=== PATIENT | female | born 1945 | race Caucasian/White ===

== ENCOUNTER 2024-08-22 07:46 | Outpatient (OUT) | payer MEDICARE, SELFPAY ==
--- OUTSIDE RECORDS SUMMARY | 2024-08-21 09:30 | XMS_ITS | Encounter Summary ---
Author Organization [facility] Address [address] [place] [address] Care Team Providers Care Combination Machine Tender Name Role Phone Nitesh Ware MD Primary Care Provider [phone] Rodrigo Baugh MD Unavailable [phone] Flip Alvarado DPM Unavailable [phone] Reason for Visit * Consultation (Routine) - Pending Review Specialty Diagnoses / Procedures Referred By Fina arambula Referred To Contact Physical Therapy Diagnoses Gait abnormality Weakness Procedures WI MANUAL THERAPY TQS 1/> REGIONS EACH 15 MINUTES WI THER PX 1/> AREAS EACH 15 MIN NEUROMUSC REEDUCA WI THERAPEUTIC PX 1/> AREAS EACH 15 MIN EXERCISES PHYS/OCC THERAPY Rodrigo Baugh MD [address] [facility] [address] [place] [address] Phone: tel: fax: Clif Gonzalez, PT [address] [address] Phone: tel: fax: Referral ID Status Reason Start Date Expiration Date Visits Requested Visits Authorized [id number] Pending Review Specialty Services Required 07/30/2024 11/27/2024 3 3 Encounter Details Date Type Department Care Team (Late st Contact Info) Description 08/21/2024 9:30 AM EDT Treatment [facility] [address] [facility] [address] [place] [address] Clif Gonzalez, PT [address] [address] Gait abnormality (Primary Dx); Weakness Social History Tobacco Use Types Packs/Day Years Used Date Smoking Tobacco: Never Smokeless Tobacco: Never Alcohol Use Standard Drinks/Week Comments Not Currently 0 (1 standard drink = 0.6 oz pure alcohol) Caffeine intake : 1-2 cups per day Humiliation, Afraid, Rape, and Kick questionnair e Answer Date Recorded Within the last year, have y ou been afraid of your partner or ex-partner? No 07/11/2022 Within the last year, have y ou been humiliated or emotionally abused in other ways by your partner or ex-partner? No 07/11/2022 Physically Abused Not on file 07/11/2022 Within the last year, have y ou been raped or forced to have any kind of sexual activity by your partner or ex-partner? No 07/11/2022 Social Connection and Isolat ion Panel [NHANES] Answer Date Recorded In a typical week, how many times do you talk on the phone with family, friends, or neighbors? Three times a week 07/11/2022 How often do you get togethe r with friends or relatives? Once a week 07/11/2022 How often do you attend chur ch or advent services? More than 4 times per year 07/11/2022 Do you belong to any clubs o r organizations such as oriental orthodox groups, unions, fraternal or athletic groups, or school groups? No 07/11/2022 Attends Club or Organization Meetings Not on shay e 07/11/2022 Are you , , di vorced, , never , or living with a partner? 07/11/2022 AUDIT-C Answer Date Recorded Q1: How often do you have a drink containing alcohol? Never 07/11/2022 Q2: How many drinks containi ng alcohol do you have on a typical day when you are drinking? Patient does not drink Q3: How often do you have si x or more drinks on one occasion? Never 07/11/2022 Overall Financial Resource Strain (CARDIA) Answe r Date Recorded How hard is it for you to pa y for the very basics like food, housing, medical care, and heating? Not hard at all 07/11/2022 PHQ-2 Answer Date Recorded Patient Health Questionnaire-2 Score 0 06/18/2024 [facility] - Occupational Stress Questionnaire Answer Date Recorded Do you feel stress - tense, restless, nervous, or anxious, or unable to sleep at night because your mind is troubled all the time - these days? Only a little 07/11/2022 Exercise Vital Sign Answer Date Recorde d On average, how many days pe r week do you engage in moderate to strenuous exercise (like a brisk walk)? 1 day 07/11/2022 On average, how many minutes do you engage in exercise at this level? 20 min 07/11/2022 Hunger Vital Sign Answer Date Recorded Within the past 12 months, y ou worried that your food would run out before you got the money to buy more. Never true 07/12/19 23 Within the past 12 months, t he food you bought just didn't last and you didn't have money to get more. Never true 07/11/2022 PRAPARE - Transportation Answer Date Re corded In the past 12 months, has l ack of transportation kept you from medical appointments or from getting medications? No 07/2022 In the past 12 months, has l ack of transportation kept you from meetings, work, or from getting things needed for daily living? No 07/11/2022 Housing Stability Vital Sign Answer Fermin e Recorded In the last 12 months, was t here a time when you were not able to pay the mortgage or rent on time? No 07/11/2022 Number of Places Lived in the Last Year Not on f ile 07/11/2022 In the last 12 months, was t here a time when you did not have a steady place to sleep or slept in a senior living (including now)? No 07/11/2022 Education Answer Date Recorded What is the highest level of school you have completed or the highest degree you have received? High school graduate 07/05/2022 Comments No Sex and Gender Information Value Date Recorded Sex Assigned at Not on file Legal Sex Female 6:34 PM EDT Gender Identity Not on file Sexual Orientation Not on file documented as of this encounter Progress Notes * Clif Gonzalez, PT - 08/21/2024 9:30 AM EDT Images from the original note were not included. Physical Therapy Treatment Visit Patient Name: Indiana Duran Today's Date: 08/21/24 Encounter Diagnoses Name Primary? Gait abnormality Yes Weakness Visit number: 14 Timed Code Treatment: 40 minutes Total Treatment Time: 57 minutes Time In: 09:33 AM Time Out: 10:30 AM History: Pt. Presents to PT with c/c of poor balance and LE weakness. Pt. Was Dx diabetic polyneuropathy. Denies recent falls. Pt. Has left leg pain while sleeping at night and pain while wake her upat night. Pt. Has difficulty walking due to LE weakness. Precautions: universal Subjective: Pt reports no issue with past Rx, feels her balance has improved. Pain: denies Objective: PT Evaluation (06/11/24) Lumbar ROM: WFL LE ROM: WFL in all planes Flexibility: WFL Strength: core 4-/5, R LE 4-/5, Left LE 4-/5 Gait: limping gait pattern, decreased stride length, hip pain for first several steps TU seconds Treatment: Manual Therapy: Passive ROM, Joint mobilization, Soft Tissue Mobilization, Myofascial Release, Muscle Energy Technique, Neural Mobilization, Myofascial Cupping, Dry Needling, IASTM, and Scar mobilization Therapeutic Exercise: (15 minutes unsupervised/ 25 min total) Guided pt through ther and flex exercises per grid; to improve LE functional strength and tolerance. Nustep ( 0 minutes ) set to hills lev 4 seat to 15 to improve cardiovascular Therapeutic Activity: ( 15 minutes supervised) Exercises to improve dynamic activities, functional tasks, functional mobility to return to prior activity level Gait Training: Neuromuscular re-education: (10 minutes supervised ) static and dynamic balancing activity using various surfaces, tandem, single leg all LE proprioception, prevent falls and improve overall balance Modalities: Heat, Ice, Electrical Stimulation, Ultrasound, Cervical Mechanical Traction, Lumbar Mechanical Traction, Iontophoresis, and Fluidotherapy Assessment: MMT: Right LE 4/5 MMT: Left LE 4/5 TU.82, 9.52, 9.03 (average 9.13) Pt has participated in 14 PT session with start of POC on 06/11/24 for LE weakness and balance, occasional UE support. Reports mild muscle soreness post session. Continued with static, dynamic balancing, LE strengthening activity with pt tolerating well. Pt to try doing HEP on her own, will continue once a week. Recommend to continue PT treatment to improve her functional mobility. Continues to improve functional mobility. Outcome Measure: IE , (07/10/24) 48 Short Term Goal: To be met in 2 weeks Goal 1: Pt to be instructed in home exercise program. Cushion Installer Goals: To be met in 10 weeks Goal 1: Pt to report independence and compliance with home program. MET Goal 2: Pt. Will demonstrate 5/5 right LE strength grossly in all planes to help improve her functional mobility. Progressing Goal 3: Pt. Will demonstrate 5/5 left LE strength grossly in all planes to help improve her functional mobility. Progressing Goal 4: Pt. Will demonstrate 10 TUG time or less to help improve her functional mobility and balance. MET Goal 5: Pt. Will demonstrate good dynamic balance to help improve her functional mobility. Progressing Pt will benefit from skilled PT for 1-3x/week from 06/11/24 to 08/20/24 to address the above impairments. Will transfer PT care to Lanie Sykes, PT, CMPT,DPT I hereby deem this POC medically necessary. Please sign below. Date: documented in this encounter Plan of Treatment Upcoming Encounters Date Type Department Care Team (Late st Contact Info) Description 09/25/2024 9:00 AM EDT Office Visit [facility] 112 [facility] 120 [place] [address] Flip Alvarado DPM 3006 [facility] 5 [place] [address] 10/02/2024 11:00 AM EDT Office Visit [facility] [address] [place] [address] Rodrigo Baugh MD [address] [address] 12/10/2024 9:00 AM EST Office Visit [facility] 100 112 [facility] 100 [place] [address] Nitesh Ware MD 112 [facility] 100 [place] [address] documented as of this encounter Visit Diagnoses Diagnosis Gait abnormality- Primary Abnormality of gait Weakness Other malaise and fatigue documented in this encounter Additional Health Concerns Assessment Noted Time PHQ-9 Depression Total Score: 1 06/03/19 25 8:00 AM EDT documented as of this encounter Care Teams Combination Machine Tender Relationship Specialty Start Date End Date Nitesh Ware MD 112 [facility] 100 [place] [address] PCP - General Family Medicine 05/01/24 Rodrigo Baugh MD [address] [place] [address] Referring Physician Neurology 06/02/24 Flip Alvarado DPM 112 [facility] 120 [place] [address] Referring Physician Podiatry 06/02/24 documented as of this encounter
--- OUTSIDE RECORDS SUMMARY | 2024-08-22 07:53 | XMS_ITS | Encounter Summary ---
Author Organization [facility] Address [address] [place] [address] Care Team Providers Care Dowel Sticker Operator Name Role Phone Nitesh Ware MD Primary Care Provider Rodrigo Baugh MD Unavailable Flip Alvarado DPM Unavailable [phone] Encounter Details Date Type Department Care Team (Late st Contact Info) Description 07/08/2024 Orders Only [facility] [address] [place] [address] Nitesh Ware MD [address] [place] [address] Social History Tobacco Use Types Packs/Day Years [...] 07/11/2022 How often do you attend chur or mormonism services? More than 4 times per year 07/11/2022 Do you belong to any clubs o r organizations such as mu-ism groups, unions, fraternal or athletic groups, or [...] 06/18/2024 [facility] - Occupational Stress Questionnaire Answer Date Recorded [...] place to sleep or slept in a custodial (including now)? No 07/11/2022 Education Answer Date [...] on file documented as of this encounter Plan of Treatment Upcoming Encounters Date Type Department Care Team (Late st Contact Info) Description 09/25/2024 9:00 AM EDT Office Visit [facility] [address] [facility] 120 [place] [address] Flip Alvarado, DPM 3006 [facility] [place] [address] 10/02/2024 11:00 AM EDT Office Visit [facility] [address] [facility] [address] [place] [address] Rodrigo Baugh MD 9923 [facility] [address] [place] [address] 12/10/2024 9:00 AM EST Office Visit [facility] [address] [facility] 100 [place] [address] Nitesh Ware MD [address] [place] [address] documented as of this encounter Visit Diagnoses Not on filedocumented in this encounter Additional Health Concerns Assessment Noted Time PHQ-9 Depression Total Score: 1 06/03/19 25 8:00 AM EDT documented as of this encounter Care Teams Dowel Sticker Operator Relationship Specialty Start Date End Date Nitesh Ware MD 112 [facility] 100 [place] [address] PCP - General Family Medicine 05/01/24 Rodrigo Baugh MD [address] [place] [address] Referring Physician Neurology 06/02/24 Flip Alvarado DPM 112 [facility] [address] [place] [address] Referring Physician Podiatry 06/02/24 documented as of this encounter
--- OUTSIDE RECORDS SUMMARY | 2024-08-22 07:53 | XMS_ITS | Encounter Summary ---
Author Organization [facility] Address [address] [place] [address] Care Team Providers Care Sales And Customer Relations Rep Name Role Phone Nitesh Ware MD Unavailable [phone] Marleen Lovett LPN Unavailable Nitesh Ware MD Primary Care Provider [phone] Rodrigo Baugh MD Unavailable [phone] Flip Alvarado DPM Unavailable Encounter Details Date Type Department Care Team ([facility] st Contact Info) Description 11/23/2022 Abstract [facility] 112 [facility] 120 [place] [address] Flip Alvarado DPM 3006 [facility] 5 [place] [address] Social History Tobacco Use Types Packs/Day Years Used Date Smoking Tobacco: Never Smokeless Tobacco: Never Alcohol Use Standard Drinks/Week Comments Never 0 (1 standard drink = 0.6 oz pur e alcohol) caffeine 1-2 cups per day Humiliation, Afraid, Rape, [...] week 07/11/2022 How often do you attend [facility] or faith services? More than 4 times per year 07/11/2022 Do you belong to any clubs o r organizations such as sikhism groups, unions, [employer] or athletic groups, or school groups? No [...] Date Recorded Patient Health Questionnaire-2 Score 0 11/27/2022 [facility] Questionnaire Answer Date Recorded [...] place to sleep or slept in a group home (including now)? No 07/11/2022 Education Answer Date [...] EDT Office Visit [facility] 112 [facility] 120 [place] [address] Flip Alvarado DPM 3009 [facility] [address] [place] [address] 10/02/2024 11:00 AM EDT Office Visit [facility] [address] [facility] [address] [place] [address] Rodrigo Baugh MD [address] [facility] [address] [address] 12/10/2024 9:00 AM EST Office Visit [facility] [address] [facility] [address] [place] [address] Nitesh Ware MD [address] [place] [address] documented as of this encounter Visit Diagnoses Not on filedocumented in this encounter Care Teams Sales And Customer Relations Rep Relationship Specialty Start Date End Date Nitesh Ware MD [address] [facility] [address] [place] [address] (Fax) PCP - [employer] 02/05/17 04/11/24 Nitesh Ware MD [address] [facility] 100 [place] [address] PCP - General Family Medicine 05/01/24 Marleen Lovett LPN [address] [place] [address] Licensed Practical Nurse Family Medicine 03/08/23 Rodrigo Baugh MD [address] [place] [address] Referring Physician Neurology 06/02/24 Flip Alvarado DPM [address] [facility] [address] [place] [address] Referring Physician Podiatry 06/02/24 documented as of this encounter
--- OUTSIDE RECORDS SUMMARY | 2024-08-22 07:53 | XMS_ITS | Encounter Summary ---
Author Organization [facility] Address [address] [place] [address] Care Team Providers Care Stitcher Standard Machine Name Role Phone Nitesh Ware MD Primary Care Provider Rodrigo Baugh MD Unavailable Flip Alvarado DPM Unavailable Reason for Visit * Reason Comments Med Refill Encounter Details Date Type Department Care Team (Late st Contact Info) Description 06/15/2024 Refill [facility] [address] [place] [address] Nitesh Ware MD 112 [facility] [address] [place] [address] Benign essential hypertension Social History Tobacco Use Types Packs/Day Years [...] How often do you attend chur or faith services? More than 4 times per year 07/11/2022 Do you belong to any clubs o r organizations such as moravian groups, unions, fraternal or athletic groups, or [...] Recorded Patient Health Questionnaire-2 Score 0 06/18/2024 [facility] Questionnaire Answer Date [...] place to sleep or slept in a mcc (including now)? No 07/11/2022 Education Answer Date [...] on file documented as of this encounter Functional Status * Over the past 2 weeks, how often have you been bothered by any of the following problems? Question Answer Date of Assessment Author Little interest or pleasure in doing things Not at all 06/18/2024 9:19 AM EDT Lola Romero MA Feeling down, depressed, or hopeless Not at all 06/18/2024 9:19 AM EDT Lola Romero MA Patient Health Questionnaire -2 Score 0 06/18/2024 9:19 AM EDT Lola Romero MA documented as of this encounter Plan of Treatment Upcoming Encounters Date Type Department Care Team (Late st Contact Info) Description 09/25/2024 9:00 AM EDT Office Visit [facility] 112 [facility] 120 [place] [address] Flip Alvarado DPM 9433 [facility] 5 [place] [address] 10/02/2024 11:00 AM EDT Office Visit [facility] [address] [place] [address] Rodrigo Baugh MD 5372 [facility] [address] [address] 12/10/2024 9:00 AM EST Office Visit [facility] 100 [address] [facility] 100 [place] [address] Nitesh Ware MD 112 [facility] 100 [place] [address] (Fax) documented as of this encounter Visit Diagnoses Diagnosis Benign essential hypertension Essential hypertension, benign documented in this encounter Additional Health Concerns Assessment Noted Time PHQ-9 Depression Total Score: 1 06/03/19 8:00 AM EDT documented as of this encounter Care Teams Stitcher Standard Machine Relationship Specialty Start Date End Date Nitesh Ware MD 112 [facility] 100 [place] [address] PCP - General Family Medicine 05/01/24 Rodrigo Baugh MD [address] [place] [address] Referring Physician Neurology 06/02/24 Flip Alvarado DPM 112 [facility] 120 [place] [address] Referring Physician Podiatry 06/02/24 documented as of this encounter
--- OUTSIDE RECORDS SUMMARY | 2024-08-22 07:54 | XMS_ITS | Encounter Summary ---
Author Organization [facility] Address [address] [place] [address] Care Team Providers Care Inoculator Name Role Phone Nitesh Ware MD Unavailable [phone] Nitesh Ware MD Primary Care Provider [phone] Rodrigo Baugh MD Unavailable [phone] Flip Alvarado DPM Unavailable [phone] Encounter Details Date Type Department Care Team (Late st Contact Info) Description 04/08/2024 Orders Only [facility] [address] [place] [address] Lola Romero MA Neuropathy; Abnormal EMG Social History Tobacco Use Types Packs/Day Years [...] week 07/11/2022 How often do you attend [facility] or bahai services? More than 4 times per year 07/11/2022 Do you belong to any clubs o r organizations such as zoroastrianism groups, unions, fraternal or athletic groups, or [...] Date Recorded Patient Health Questionnaire-2 Score 0 05/30/2023 [facility] - Occupational Stress Questionnaire Answer [...] EDT Office Visit [facility] 112 [facility] 120 [place] [address] Flip Alvarado DPM 3006 [facility] 5 [place] [address] 10/02/2024 11:00 AM EDT Office Visit [facility] [address] [facility] [address] [place] [address] Rodrigo Baugh MD 7310 [facility] [address] [id number] 12/10/2024 9:00 AM EST Office Visit [facility] 100 112 [facility] 100 [place] [address] Nitesh Ware MD 112 [facility] [address] [place], [place] [address] (Fax) documented as of this encounter Visit Diagnoses Diagnosis Neuropathy Mononeuritis of unspecified site Abnormal EMG documented in this encounter Additional Health Concerns Assessment Noted Time PHQ-9 Depression Total Score: 1 05/30/19 24 10:00 AM EDT documented as of this encounter Care Teams Inoculator Relationship Specialty Start Date End Date Nitesh Ware MD 112 [facility] [address] [place] [address] (Fax) PCP - [employer] 02/05/17 04/11/24 Nitesh Ware MD 112 [facility] 100 [place] [address] PCP - General Family Medicine 05/01/24 Rodrigo Buagh MD [address] [place] [address] Referring Physician Neurology 06/02/24 Flip Alvarado DPM 112 [facility] [address] [place] [address] Referring Physician Podiatry 06/02/24 documented as of this encounter
--- OUTSIDE RECORDS SUMMARY | 2024-08-22 07:54 | XMS_ITS | Encounter Summary ---
Author Organization [facility] Address [address] [place] [address] Care Team Providers Care Sales Data Analyst Name Role Phone Nitesh Ware MD Unavailable [phone] Nitesh Ware MD Primary Care Provider [phone] Rodrigo Baugh MD Unavailable [phone] Flip Alvarado DPM Unavailable [phone] Encounter Details Date Type Department Care Team (Late st Contact Info) Description 09/18/2023 Orders Only [facility] [address] [place] [address] Edi Christy, OD [address] [place] [address] Social History Tobacco Use Types Packs/Day Years [...] How often do you attend chur or congregation services? More than 4 times per year 07/11/2022 Do you belong to any clubs o r organizations such as anabaptist groups, unions, fraternal or athletic groups, or [...] Recorded Patient Health Questionnaire-2 Score 0 05/30/2023 [facility] - Occupational Stress Questionnaire Answer Date [...] place to sleep or slept in a penitentiary (including now)? No 07/11/2022 Education Answer Date [...] EDT Office Visit [facility] 112 [facility] 120 [place] [address] Flip Alvarado DPM 3006 [facility] 5 [place] [address] 10/02/2024 11:00 AM EDT Office Visit [facility] [address] [facility] [address] [place] [address] Rodrigo Baugh MD 7748 [facility] [address], [place] [address] 12/10/2024 9:00 AM EST Office Visit [facility] 100 112 [facility] 100 [place] [address] Nitesh Ware MD 112 [facility] [address] [place] [address] documented as of this encounter Procedures Procedure Name Priority Date/Time Associated Diagnosis Comments DIABETIC RETINOPATHY SCREENING - OU - BOTH EYES Routine 09/17/2023 9:15 AM EDT documented in this encounter Results * Diabetic Retinopathy Screening - OU - Both Eyes (09/17/2023 9:15 AM EDT) Anatomical Region Laterality Modality Head Other Edi Christy OD OPHTH PHOTOGRAPHY Final Result documented in this encounter Visit Diagnoses Not on filedocumented in this encounter Additional Health Concerns Assessment Noted Time PHQ-9 Depression Total Score: 1 05/30/19 24 10:00 AM EDT documented as of this encounter Care Teams Sales Data Analyst Relationship Specialty Start Date End Date Nitesh Ware MD 112 [facility] [address] [place] [address] PCP - [employer] 02/05/17 04/11/24 Nitesh Ware MD 112 [facility] 100 [place] [address] (Fax) PCP - General Family Medicine 05/01/24 Rodrigo Baugh MD [address] [place] [address] Referring Physician Neurology 06/02/24 Flip Alvarado DPM 112 [facility] [address] [place] [address] Referring Physician Podiatry 06/02/24 documented as of this encounter
--- OUTSIDE RECORDS SUMMARY | 2024-08-22 07:54 | XMS_ITS | Encounter Summary ---
Author Organization [facility] Address [address] [place] [address] Care Team Providers Care Gripper Installer Name Role Phone Nitesh Ware MD Unavailable [phone] Marleen Lovett LPN Unavailable Nitesh Ware MD Primary Care Provider Rodrigo Baugh MD Unavailable [phone] Flip Alvarado DPHannah Unavailable [phone] Encounter Details Date Type Department Care Team (Late st Contact Info) Description 09/25/2022 Abstract [facility] [address] [place] [address] Nitesh Ware MD 112 [facility] 100 [place] [address] Social History Tobacco Use Types Packs/Day Years [...] week 07/11/2022 How often do you attend [facility] or yarsani services? More than 4 times per year 07/11/2022 Do you belong to any clubs o r organizations such as nondenominational groups, unions, fraternal or athletic groups, or [...] and heating? Not hard at all 07/11/2022 [facility] - Occupational Stress [...] EDT Office Visit [facility] 112 [facility] 120 [place] [address] Flip Alvarado DPM 3006 [facility] 5 [place] [address] 10/02/2024 11:00 AM EDT Office Visit [facility] NEUR [address] [facility] 310 [place] [address] Rodrigo Baugh MD [address] [facility] [address], [place] [address] 12/10/2024 9:00 AM EST Office Visit [facility] FM 100 112 [facility] 100 [place] [address] Nitesh Ware MD [address] [place] [address] documented as of this encounter Visit Diagnoses Not on filedocumented in this encounter Care Teams Gripper Installer Relationship Specialty Start Date End Date Nitesh Ware MD [address] [place] [address] (Fax) PCP - [employer] 02/05/17 04/11/24 Nitesh Ware MD [address] [place] [address] PCP - General Family Medicine 05/01/24 Marleen Lovett LPN [address] [place] [address] Licensed Practical Nurse Family Medicine 03/08/23 Rodrigo Baugh MD [address] [place] [address] Referring Physician Neurology 06/02/24 Flip Alvarado DPM [address] [place] [address] Referring Physician Podiatry 06/02/24 documented as of this encounter
--- OUTSIDE RECORDS SUMMARY | 2024-08-22 07:54 | XMS_ITS | Encounter Summary ---
Author Organization [facility] Address [address] [place] [address] Care Team Providers Care Mixed Livestock Farmer Name Role Phone Nitesh Ware MD Primary Care Provider Rodrigo Baugh MD Unavailable [phone] Flip Alvarado DPM Unavailable [phone] Encounter Details Date Type Department Care Team (Latest Contact Info) Description 08/21/2024 Travel Social History Tobacco Use Types Packs/Day Years [...] you attend [facility] or worship services? More than 4 times per year 07/11/2022 Do you belong to any clubs o r organizations such as faith groups, unions, fraternal or athletic groups, or [...] Recorded Patient Health Questionnaire-2 Score 0 06/18/2024 [facility] - Occupational Stress Questionnaire Answer Date [...] place to sleep or slept in a longterm (including now)? No 07/11/2022 Education Answer Date [...] EDT Office Visit [facility] 112 [facility] 120 [place] [address] Flip Alvarado DPM 3006 [facility] 5 [place] [address] 10/02/2024 11:00 AM EDT Office Visit [facility] NE[facility] [address] [facility] 310 [place] [address] Rodrigo Baugh MD 7960 [facility] [address] [id number] 12/10/2024 9:00 AM EST Office Visit [facility] 100 112 [facility] 100 [place] [address] Nitesh Ware MD 112 [facility] [address] [place] [address] documented as of this encounter Visit Diagnoses Not on filedocumented in this encounter Additional Health Concerns Assessment Noted Time PHQ-9 Depression Total Score: 1 06/03/19 25 8:00 AM EDT documented as of this encounter Care Teams Mixed Livestock Farmer Relationship Specialty Start Date End Date Nitesh Ware MD [address] [place] [address] PCP - General Family Medicine 05/01/24 Rodrigo Baugh MD [address] [place] [address] Referring Physician Neurology 06/02/24 Flip Alvarado DPM [address] [place] [address] Referring Physician Podiatry 06/02/24 documented as of this encounter
--- OUTSIDE RECORDS SUMMARY | 2024-08-22 07:54 | XMS_ITS | Encounter Summary ---
Author Organization [facility] Address [address] [place] [address] Care Team Providers Care Thaw Shed Heater Tender Name Role Phone Nitesh Ware MD Primary Care Provider Rodrigo Baugh MD Unavailable [phone] Flip Alvarado DPM Unavailable Encounter Details Date Type Department Care Team (Late st Contact Info) Description 08/12/2024 Orders Only [facility] [address] [place] [address] Heather, May, Diabetic polyneuropathy associated with type 2 diabetes mellitus (HCC); Type 2 diabetes mellitus with stage 3a chronic kidney disease, without long-term current use of insulin (HCC) Social History Tobacco Use Types Packs/Day Years [...] How often do you attend chur or amish services? More than 4 times per year 07/11/2022 Do you belong to any clubs o r organizations such as congregational groups, unions, fraternal or athletic groups, or [...] Recorded Patient Health Questionnaire-2 Score 0 06/18/2024 [facility] - Occupational Stress Questionnaire Answer Date [...] to sleep or slept in a senior care (including now)? No 07/11/2022 Education Answer Date [...] as of this encounter Progress Notes * Lola Romero MA - 08/12/2024 9:42 AM EDT Pt got a letter from insurance stating the machine she just got is not covered anymore. Spoke with Donny at [facility] and he guided me to sending a new machine. documented in this encounter Plan of Treatment Upcoming Encounters Date Type Department Care Team (Late st Contact Info) Description 09/25/2024 9:00 AM EDT Office Visit [facility] 112 [facility] [address] [place] [address] Flip Alvarado DPM 3006 [facility] [address] 5 [place] [address] 10/02/2024 11:00 AM EDT Office Visit [facility] [address] [place] [address] Rodrigo Baugh MD [address] [facility] [address] [address] 12/10/2024 9:00 AM EST Office Visit [facility] 100 112 [facility] 100 [place] [address] Nitesh Ware MD 112 [facility] 100 [place] [address] documented as of this encounter Visit Diagnoses Diagnosis Diabetic polyneuropathy associated with type 2 diabetes mellitus (HCC) Type 2 diabetes mellitus with stage 3a chronic kidney disease, without long-term current use of insulin (HCC) documented in this encounter Additional Health Concerns Assessment Noted Time PHQ-9 Depression Total Score: 1 06/03/19 8:00 AM EDT documented as of this encounter Care Teams Thaw Shed Heater Tender Relationship Specialty Start Date End Date Nitesh Ware MD 112 [facility] 100 [place] [address] PCP - General Family Medicine 05/01/24 Rodrigo Baugh MD [address] [facility] 310 [place] [address] Referring Physician Neurology 06/02/24 Flip Alvarado DPM 112 [facility] 120 [place] [address] Referring Physician Podiatry 06/02/24 documented as of this encounter
--- OUTSIDE RECORDS SUMMARY | 2024-08-22 07:54 | XMS_ITS | Clinical Summary ---
Author Organization [facility] Address [address] [facility], [address] [place] [address] Care Team Providers Care Second Facing Baster Name Role Phone Nitesh Ware MD Primary Care Provider Allergies No known active allergies Medications amLODIPine (NORVASC) 10 MG tablet Take 10 mg by mouth daily 08/19/2018 Active metFORMIN (GLUCOPHAGE) 1000 MG tablet Take 1,000 mg by mouth 2 times daily (with meals) Active losartan (COZAAR) 100 MG tabletIndication s:losartan/hctz 100-25 Take 100 mg by mouth daily Indications : losartan/hc tz 100-25 08/19/2018 Active aspirin (ASPIRIN 81) 81 MG EC tablet Take 81 mg by mouth daily 01/23/2013 Active vitamin D (CHOLECALCIFEROL ) 250 MCG (24009 UT) CAPS capsule Take 1,000 Units by mouth daily 01/23/2013 Active calcium carbonate (OSCAL) 500 MG TABS tablet Take 500 mg by mouth daily Active Multiple Vitamins-Mineral s (MULTIVITAMIN ADULTS 50+) TABS Take by mouth Active Active Problems Problem Noted Date Diagnosed Date Gait abnormality 08/01/2019 Type 2 diabetes mellitus wit h hyperglycemia, with long-term current use of insulin 08/01/2019 HTN (hypertension) 08/01/2019 Cervical disc disorder with myelopathy of mid-cervical region 07/31/2019 Disease of spinal cord, unspecified 06/25/2019 Other spondylosis with myelopathy, cervical marlene on 06/18/2019 Pain in right knee 12/19/2017 Pain of right upper extremity 08/28/2016 Malignant neoplasm of female breast 01/27/2013 Family History Medical History Relation Name Comments Hypertension Father Coronary Art Dis Mother Diabetes Mother Heart Disease Mother Relation Name Status Comments Father Mother Social History Tobacco Use Types Packs/Day Years Used Date Smoking Tobacco: Never Smokeless Tobacco: Never Alcohol Use Standard Drinks/Week Comments Not Currently 0 (1 standard drink = 0.6 oz pur e alcohol) Comments No Sex and Gender Information Value Date Recorded Sex Assigned at Not on file Legal Sex Female 3:29 PM EST Gender Identity Not on file Sexual Orientation Not on file Occupation Industry Job Start Date Job End Date Not on file Not on file Not on file Not on file Last Filed Vital Signs Vital Sign Reading Time Taken Comments Blood Pressure 131/60 08/01/2019 8:15 AM EDT Pulse 88 08/01/2019 8:15 AM EDT Temperature 36.3 C (97.3 F) 02/20/2020 11:08 AM EST Respiratory Rate 16 08/01/2019 8:15 AM EDT Oxygen Saturation 95% 08/01/2019 8:15 AM EDT Inhaled Oxygen Concentration - - Weight 72.6 kg (160 lb) 02/20/2020 11:08 AM EST Height 154.9 cm (5' 1 ) 02/20/2020 11:08 AM EST Body Mass Index 30.23 02/20/2020 11:08 AM EST Plan of Treatment Not on file Medical Devices Implanted Type Area Dry Boss Device Identifier Shelf Expiration Date Model / Serial / Lot Plate Spine 9mm Leverage Implanted:Qty : 3 on 07/31/2019 by Michele Houston MD at [facility] Spine N/A: Spine Cervical [employer] [id number] / / Screw Leverage Laminar 2.6 X 5mm Implanted:Qty : 3 on 07/31/2019 by Michele Houston MD at [facility] Spine N/A: Spine Cervical [employer]PMM [id number] / / Screw Leverage Laminar 2.6 X 5mm Implanted:Qty : 4 on 07/31/2019 by Michele Houston MD at [facility] Spine N/A: Spine Cervical [employer] [id number] / / Insurance HUMANA HUMANA HUMANA MEDICARE HUMANA MEDICARE Advance Directives * Full Code (Latest Code Status on File) Date Activated Date Inactivated Comments 07/31/2019 1:36 PM 08/01/2019 1:52 PM Care Teams Second Facing Baster Relationship Specialty Start Date End Date Nitesh Ware MD PCP - General 04/16/19
--- OUTSIDE RECORDS SUMMARY | 2024-08-22 07:54 | XMS_ITS | Encounter Summary ---
Author Organization [facility] Address [address] [place] [address] Care Team Providers Care Burn Crew Member Name Role Phone Nitesh Ware MD Unavailable [phone] Nitesh Ware MD Primary Care Provider [phone] Rodrigo Baugh MD Unavailable [phone] Flip Alvarado DPM Unavailable [phone] Encounter Details Date Type Department Care Team (Late st Contact Info) Description 03/12/2024 Orders Only [facility] [address] [place] [address] Nitesh Ware MD [address] [place] [address] Social History Tobacco Use Types Packs/Day Years [...] How often do you attend chur or jainism services? More than 4 times per year 07/11/2022 Do you belong to any clubs o r organizations such as scientology groups, unions, fraternal or athletic groups, or [...] Recorded Patient Health Questionnaire-2 Score 0 05/30/2023 [facility] Questionnaire Answer Date [...] place to sleep or slept in a half-way (including now)? No 07/11/2022 Education Answer Date [...] EDT Office Visit [facility] 112 [facility] 120 [place] [address] Flip Alvarado DPM 3006 [facility] 5 [place] [address] 10/02/2024 11:00 AM EDT Office Visit [facility] [address] [facility] 310 [place] [address] Rodrigo Baugh MD [address] [id number] 12/10/2024 9:00 AM EST Office Visit [facility] 100 112 [facility] 100 [place] [address] Nitesh Ware MD 112 [facility] 100 [place] [address] documented as of this encounter Visit Diagnoses Not on filedocumented in this encounter Additional Health Concerns Assessment Noted Time PHQ-9 Depression Total Score: 1 05/30/19 24 10:00 AM EDT documented as of this encounter Care Teams Burn Crew Member Relationship Specialty Start Date End Date Nitesh Ware MD 112 [facility] 100 [place] [address] PCP - [employer] 02/05/17 04/11/24 Nitesh Ware MD [address] [address] PCP - General Family Medicine 05/01/24 Rodrigo Baugh MD [address] [facility] [address] [place] [address] Referring Physician Neurology 06/02/24 Flip Alvarado DPM 112 [facility] 120 [place] [address] Referring Physician Podiatry 06/02/24 documented as of this encounter
--- OUTSIDE RECORDS SUMMARY | 2024-08-22 07:54 | XMS_ITS | Encounter Summary ---
Author Organization [facility] Address [address] [place] [address] Care Team Providers Care Qc Analyst Name Role Phone Nitesh Ware MD Unavailable [phone] Marleen Lovett LPN Unavailable Nitesh Ware MD Primary Care Provider Rodrigo Baugh MD Unavailable [phone] Flip Alvarado DPHannah Unavailable [phone] Encounter Details Date Type Department Care Team (Late st Contact Info) Description 10/19/2022 Abstract [facility] [address] [place] [address] Nitesh Ware MD 112 [facility] 100 [place] [address] Social History Tobacco Use Types [...] week 07/11/2022 How often do you attend [facility] or scientologist services? More than 4 times per year 07/11/2022 Do you belong to any clubs o r organizations such as baptist groups, unions, fraternal or athletic groups, or [...] and heating? Not hard at all 07/11/2022 [facility] Occupat ional Health - Occupational Stress [...] place to sleep or slept in a detention (including now)? No 07/11/2022 Education Answer Date [...] Office Visit [facility] 112 [facility] 120 [place] [address] Flip Alvarado DPM 3006 [facility] 5 [place] [address] 10/02/2024 11:00 AM EDT Office Visit [facility] [address] [facility] 310 [place] [address] Rodrigo Baugh MD [address] [facility] [address], [place] [address] 12/10/2024 9:00 AM EST Office Visit [facility] 100 112 [facility] 100 [place] [address] Nitesh Ware MD [address] [place] [address] documented as of this encounter Visit Diagnoses Not on filedocumented in this encounter Care Teams Qc Analyst Relationship Specialty Start Date End Date Nitesh Ware MD [address] [place] [address] (Fax) PCP - [employer] 02/05/17 04/11/24 Nitesh Ware MD [address] [place] [address] PCP - General Family Medicine 05/01/24 Marleen Lovett LPN [address] [place] [address] Licensed Practical Nurse Family Medicine 03/08/23 Rodrigo Baugh MD [address] [place] [address] Referring Physician Neurology 06/02/24 Flip Alvarado DPM [address] [place] [address] Referring Physician Podiatry 06/02/24 documented as of this encounter
--- OUTSIDE RECORDS SUMMARY | 2024-08-22 07:54 | XMS_ITS | Encounter Summary ---
Author Organization [facility] Address [address] [place] [address] Care Team Providers Care Journeyman Mechanic Name Role Phone Nitesh Ware MD Primary Care Provider Rodrigo Baugh MD Unavailable [phone] Flip Alvarado DPM Unavailable Reason for Visit * Reason Comments Med Refill Encounter Details Date Type Department Care Team (Late st Contact Info) Description 05/25/2024 Refill [facility] [address] [place] [address] Nitesh Ware MD 112 [facility] [address] [place] [address] Benign essential hypertension Social History Tobacco Use [...] How often do you attend chur or caodaism services? More than 4 times per year 07/11/2022 Do you belong to any clubs o r organizations such as jehovah's witness groups, unions, fraternal or athletic groups, or [...] Recorded Patient Health Questionnaire-2 Score 0 05/30/2023 [facility] Questionnaire Answer Date Recorded [...] place to sleep or slept in a long-term (including now)? No 07/11/2022 Education Answer Date [...] EDT Office Visit [facility] 112 [facility] 120 [place] [address] Flip Alvarado DPM 3006 [facility] 5 [place] [address] 10/02/2024 11:00 AM EDT Office Visit [facility] NE[facility] [address] [facility] 310 [place] [address] Rodrigo Baugh MD [address] [id number] 12/10/2024 9:00 AM EST Office Visit [facility] 100 112 [facility] 100 [place] [address] Nitesh Ware MD 112 [facility] [address] [place] [address] documented as of this encounter Visit Diagnoses Diagnosis Benign essential hypertension Essential hypertension, benign documented in this encounter Additional Health Concerns Assessment Noted Time PHQ-9 Depression Total Score: 1 05/30/19 24 10:00 AM EDT documented as of this encounter Care Teams Journeyman Mechanic Relationship Specialty Start Date End Date Nitesh Ware MD 112 [facility] 100 [place] [address] PCP - General Family Medicine 05/01/24 Rodrigo Baugh MD [address] [facility] [address] [place] [address] Referring Physician Neurology 06/02/24 Flip Alvarado DPM 112 [facility] [address] [place] [address] Referring Physician Podiatry 06/02/24 documented as of this encounter
--- OUTSIDE RECORDS SUMMARY | 2024-08-22 07:54 | XMS_ITS | Encounter Summary ---
Author Organization [facility] Address [address] [place] [address] Care Team Providers Care Design Engineer Products Name Role Phone Nitesh Ware MD Unavailable [phone] Nitesh Ware MD Primary Care Provider Rodrigo Baugh MD Unavailable [phone] Flip Alvarado DPM Unavailable [phone] Reason for Visit * Reason Comments Med Refill Encounter Details Date Type Department Care Team (Late st Contact Info) Description 07/27/2023 Refill [facility] [address] [place] [address] Nitesh Ware MD [address] [place] [address] Diabetes mellitus without complication (HCC) Social History Tobacco Use Types Packs/Day [...] do you attend [facility] or anabaptism services? More than 4 times per year 07/11/2022 Do you belong to any clubs o r organizations such as druze groups, unions, fraDxTerity or athletic groups, or school groups? No [...] Recorded Patient Health Questionnaire-2 Score 0 05/30/2023 [facility] Questionnaire Answer Date [...] place to sleep or slept in a alf (including now)? No 07/11/2022 Education Answer Date [...] EDT Office Visit [facility] 112 [facility] 120 [place] [address] Flip Alvarado DPM 3004 [facility] 5 [place] [address] 10/02/2024 11:00 AM EDT Office Visit [facility] [address] [facility] 310 [place] [address] Rodrigo Baugh MD 3296 [facility] [address] [address] 12/10/2024 9:00 AM EST Office Visit [facility] [address] [place] [address] Nitesh Ware MD 112 [facility] 100 [place] [address] documented as of this encounter Visit Diagnoses Diagnosis Diabetes mellitus without complication (HCC) Type II or unspecified type diabetes mellitus without mention of complication, not stated as uncontrolled documented in this encounter Additional Health Concerns Assessment Noted Time PHQ-9 Depression Total Score: 1 05/30/19 24 10:00 AM EDT documented as of this encounter Care Teams Design Engineer Products Relationship Specialty Start Date End Date Nitesh Ware MD 112 [facility] 100 [place] [address] PCP - [employer] 02/05/17 04/11/24 Nitesh Ware MD 112 [facility] 100 [place] [address] PCP - General Family Medicine 05/01/24 Rodrigo Baugh MD [address] [place] [address] Referring Physician Neurology 06/02/24 Flip Alvarado DPM 112 [facility] 120 [place] [address] Referring Physician Podiatry 06/02/24 documented as of this encounter
--- OUTSIDE RECORDS SUMMARY | 2024-08-22 07:54 | XMS_ITS | Clinical Summary ---
Author Organization [facility] Address [address] [place] [address] Care Team Providers Care Hospice Executive Director Name Role Phone Nitesh Ware MD Primary Care Provider Rodrigo Baugh MD Unavailable [phone] Flip Alvarado DPM Unavailable Allergies Active Allergy Reactions Criticality Noted Date Comments Dapagliflozin GI intolerance 07/31/2024 constipation Fexofenadine Hcl 07/11/2022 Other Reaction(s): chest cold Metformin GI intolerance 07/31/2024 Medications aspirin 81 MG EC tablet Take 81 mg by mouth 3 (three) times a week Active Multiple Vitamins-Minerals (PRESERVISION/LUTE IN PO) take 1 daily by mouth Oral Active acetaminophen (Tylenol 8 Hour) 650 MG ER tablet Take 650 mg by mouth every 8 (eight) hours if needed. Active calcium citrate 250 MG tablet every 12 (twelve) hours. Active VITAMIN K PO Vitamin K Active magnesium 200 MG tablet Take 1 tablet by mouth at bedtime Active STRONTIUM CITRATE Take 1 tablet by mouth Daily Active Turmeric (QC TUMERIC COMPLEX PO) Take 1 tablet by mouth Daily Active albuterol HFA (Ventolin HFA) 90 mcg/act inhalerIndications :Acute bronchitis, unspecified organism Inhale 2 puffs every 4 (four) hours if needed for wheezing 18 g 04/13/19 25 Active thiamine (Vitamin B-1) 100 MG tabletIndications: Lumbosacral radiculopathy at S1,Diabetic polyneuropathy associated with type 2 diabetes mellitus (HCC) Take 1 tablet (100 mg) by mouth Daily 30 tablet 11 04/16/20 25 04/16/2 026 Active nortriptyline (Pamelor) 10 MG capsuleIndications :Diabetic polyneuropathy associated with type 2 diabetes mellitus (HCC) Take 1 capsule (10 mg) by mouth at bedtime 30 capsule 05/26/19 026 Active lisinopril-hydroCH LOROthiazide 20-12.5 MG tabletIndications: Benign essential hypertension Take 1 tablet by mouth Daily 90 tablet 1 06/19/19 025 Active metoprolol tartrate (Lopressor) 50 MG tabletIndications: Benign essential hypertension Take 1 tablet (50 mg) by mouth in the morning and 1 tablet (50 mg) before bedtime. 180 tablet 06/19/19 025 Active rosuvastatin (Crestor) 10 MG tabletIndications: Mixed dyslipidemia Take 1 tablet (10 mg) by mouth Daily 90 tablet 06/19/19 025 Active amLODIPine (Norvasc) 10 MG tabletIndications: Benign essential hypertension Take 1 tablet (10 mg) by mouth Daily 90 tablet 07/18/19 025 Active pioglitazone (Actos) 45 MG tabletIndications: Diabetic nephropathy associated with type 2 diabetes mellitus (HCC) Take 1 tablet (45 mg) by mouth Daily 30 tablet 08/08/19 025 Active Blood Glucose Monitoring Suppl (True Metrix Air Glucose Meter) w/Device kitIndications:Dodie betic polyneuropathy associated with type 2 diabetes mellitus (HCC),Type 2 diabetes mellitus with stage 3a chronic kidney disease, without long-term current use of insulin ([facility]) 1 Package Daily Pt got letter from insurance stating previous machine not supported needs Contour plus or Contour next generation 1 kit 08/13/19 25 026 Active Glucose Blood (Blood Glucose Test Strips 333) stripIndications:D iabetic polyneuropathy associated with type 2 diabetes mellitus (HCC),Type 2 diabetes mellitus with stage 3a chronic kidney disease, without long-term current use of insulin ([facility]) 1 Units by In Vitro route in the morning. Take before meals. Strips to go with covered Contour machine. 100 strip 3 08/13/19 25 025 Active Blood Glucose Monitoring Suppl (True Metrix Air Glucose Meter) w/Device kit 01/18/20 22 025 Discontin ued(Reord er) pioglitazone (Actos) 30 MG tabletIndications: Diabetic nephropathy associated with type 2 diabetes mellitus (HCC) Take 1 tablet (30 mg) by mouth Daily 90 tablet 1 06/19/19 25 025 Discontin ued(Reord er) dapagliflozin (Farxiga) 10 MGIndications:Diab etic nephropathy associated with type 2 diabetes mellitus (HCC) Take 1 tablet (10 mg) by mouth Daily 90 tablet 1 07/15/19 25 025 Discontin ued(Side effects) Blood Glucose Monitoring Suppl (True Metrix Air Glucose Meter) w/Device kitIndications:Dodie betic polyneuropathy associated with type 2 diabetes mellitus (HCC),Type 2 diabetes mellitus with stage 3a chronic kidney disease, without long-term current use of insulin ([facility]) 1 Package Daily Please get pt best available rate covered by insurance 1 kit 07/25/19 25 025 Discontin ued(Reord er) Glucose Blood (Blood Glucose Test Strips 333) stripIndications:D iabetic polyneuropathy associated with type 2 diabetes mellitus (HCC),Type 2 diabetes mellitus with stage 3a chronic kidney disease, without long-term current use of insulin ([facility]) 1 Units by In Vitro route Daily Strips to go with covered machine 100 strip 3 07/25/19 25 025 Discontin ued(Reord er) Active Problems Problem Noted Date Diagnosed Date Cardiovascular event risk 06/02/2024 Chronic kidney disease, stage 3a 06/02/2024 Lumbosacral radiculopathy at S1 05/25/2024 Radiculopathy of sacral region 03/12/2024 Diabetic polyneuropathy asso ciated with type 2 diabetes mellitus 09/22/2022 Hammertoe of second toe of right foot 09/22/2022 Arthritis of right foot 07/11/2022 Benign essential hypertension 07/11/2022 Calcaneal spur of right foot 07/11/2022 Cervical vertebral fusion 07/11/2022 Constipation due to slow transit 07/11/2022 Diabetic nephropathy associa darshan with type 2 diabetes mellitus 07/11/2022 Diverticulosis of large intestine without hemorr malathi 07/11/2022 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 07/11/2022 Overview (06/10/2023): 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 History of right mastectomy 07/11/2022 Overview (06/10/2023): 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 Hypertensive nephropathy 07/11/2022 Macular degeneration, age related, nonexudative 07/11/2022 Mixed dyslipidemia 07/11/2022 Non morbid obesity due to excess calories 2022 Peripheral vascular disease 07/11/2022 Osteopenia 07/11/2022 Post menopausal syndrome 07/11/2022 Primary osteoarthritis involving multiple joints 07/11/2022 Primary osteoarthritis of right knee 07/11/2022 Right bundle branch block 07/11/2022 Venous insufficiency 07/11/2022 Gait abnormality 08/01/2019 Cervical disc disorder with myelopathy of mid-cervical region 07/31/2019 Resolved Problems Problem Noted Date Diagnosed Date Resolved Date Diabetes mellitus without complication 07/11/2022 09/22/2022 Pain in right knee 12/19/2017 4 Malignant neoplasm of overla pping sites of left breast in female, estrogen receptor positive 01/27/2013 06/10/2023 Encounters Date Type Department Care Team Description 08/21/2024 9:30 AM EDT Treatment [facility] [address] [place] [address] Clif Gonzalez, PT Gait abnormality (Primary Dx); Weakness 08/21/2024 Bamboo flowsheet [facility] [address] [place] [address] Clif Gonzalez, PT 08/21/2024 Travel 08/12/2024 Orders Only [facility] [address] [place] [address] Lola Romero, MA Diabetic polyneuropathy associated with type 2 diabetes mellitus (HCC); Type 2 diabetes mellitus with stage 3a chronic kidney disease, without long-term current use of insulin (HCC) 08/07/2024 2:00 PM EDT Office Visit [facility] [address] [place] [address] Nitesh Ware MD Diabetic nephropathy associated with type 2 diabetes mellitus (HCC); Diabetic polyneuropathy associated with type 2 diabetes mellitus (HCC); Non morbid obesity due to excess calories 08/07/2024 Bamboo flowsheet [facility] [address] [place] [address] Nitesh Ware MD 08/07/2024 Travel 07/30/2024 9:30 AM EDT Treatment [facility] [address] [place] [address] Kelbley, Abbie, SIGNAL APPRENTICE Gait abnormality (Primary Dx); Weakness 07/30/2024 Bamboo flowsheet [facility] [address] [place] [address] Sammi Tangissa, SIGNAL APPRENTICE 07/30/2024 Travel 07/29/2024 Telephone [facility] [address] [place] [address] iNtesh Ware MD Med Refill 07/24/2024 Telephone [facility] [address] [place] [address] Lola Romero MT Care Coordination 07/23/2024 11:00 AM EDT Treatment [facility] [address] [place] [address] Kelbley, Abbie, SIGNAL APPRENTICE Gait abnormality (Primary Dx); Weakness 07/23/2024 Bamboo flowsheet [facility] [address] [place] [address] Sammi Tangissa, SIGNAL APPRENTICE 07/23/2024 Travel 07/18/2024 9:30 AM EDT Treatment [facility] [address] [place] [address] Kelbley, Abbie, SIGNAL APPRENTICE Gait abnormality (Primary Dx); Weakness 07/18/2024 Bamboo flowsheet [facility] [address] [place] [address] Timsho Abbie, SIGNAL APPRENTICE 07/18/2024 Travel 07/17/2024 9:10 AM EDT Office Visit [facility] [address] [place] [address] Flip Alvarado, DPM Diabetes mellitus due to underlying condition with diabetic polyneuropathy, unspecified whether intermediate card tender insulin use (HCC) (Primary Dx); Pain due to onychomycosis of toenails of both feet; Acquired deformity of left toe; Acquired deformity of right toe 07/17/2024 Telephone [facility] [address] [place] [address] Nitesh Ware MD 07/17/2024 Travel 07/16/2024 10:30 AM EDT Treatment [facility] [address] [place] [address] Clif Gonzalez, PT Gait abnormality (Primary Dx); Weakness 07/16/2024 Bamboo flowsheet [facility] [address] [place] [address] Clif Gonzalez, PT 07/16/2024 Travel 07/14/2024 Orders Only [facility] [address] [place] [address] Lola Romero, MA Diabetic nephropathy associated with type 2 diabetes mellitus (HCC) 07/10/2024 10:00 AM EDT Treatment [facility] [address] [place] [address] Elvis English, SIGNAL APPRENTICE Gait abnormality (Primary Dx); Weakness 07/10/2024 Bamboo flowsheet [facility] [address] [place] [address] Elvis English, SIGNAL APPRENTICE 07/10/2024 Travel 07/08/2024 Orders Only [facility] [address] [place] [address] Nitesh Ware MD 07/08/2024 Telephone [facility] [address] [place] [address] Lola Romero MA Care Coordination 07/07/2024 9:00 AM EDT Treatment [facility] [address] [place] [address] Clif Gonzalez, PT Gait abnormality (Primary Dx); Weakness 07/07/2024 Bamboo flowsheet [facility] [address] [place] [address] Clif Gonzalez, PT 07/07/2024 Travel 07/03/2024 9:00 AM EDT Treatment [facility] [address] [place] [address] Clif Gonzalez, PT Gait abnormality (Primary Dx); Weakness 07/03/2024 Travel 07/02/2024 1:30 PM EDT Office Visit [facility] [address] [facility] [address] [place] [address] Andra Davis, INTERNATIONAL EDITORIAL PRODUCER Diabetic polyneuropathy associated with type 2 diabetes mellitus (HCC) (Primary Dx); Osteoarthritis of spine with radiculopathy, lumbar region 07/02/2024 Bamboo flowsheet [facility] [address] [place] [address] Andra Davis, INTERNATIONAL EDITORIAL PRODUCER 07/02/2024 Travel 06/25/2024 9:00 AM EDT Treatment [facility] [address] [place] [address] Sammi Tangissa, SIGNAL APPRENTICE Gait abnormality (Primary Dx); Weakness 06/25/2024 Bamboo flowsheet [facility] [address] [place] [address] Sammi Tangissa, SIGNAL APPRENTICE 06/25/2024 Travel 06/23/2024 9:00 AM EDT Treatment [facility] [address] [place] [address] Lisa Clif Dyan, PT Gait abnormality (Primary Dx); Weakness 06/23/2024 Bamboo flowsheet [facility] [address] [place] [address] Clif Gonzalez, PT 06/23/2024 Travel 06/20/2024 9:00 AM EDT Treatment [facility] [address] [place] [address] Kelbleeri, Abbie, SIGNAL APPRENTICE Gait abnormality (Primary Dx); Weakness 06/20/2024 Bamboo flowsheet [facility] [address] [place] [address] Kitty, Abbie, SIGNAL APPRENTICE 06/20/2024 Travel 06/18/2024 9:30 AM EDT Office Visit [facility] [address] [place] [address] Nitesh Ware MD Benign essential hypertension (Primary Dx); Hypertensive nephropathy ; Chronic kidney disease, stage 3a ([facility]); Diabetic nephropathy associated with type 2 diabetes mellitus (HCC); Mixed dyslipidemia ; Non morbid obesity due to excess calories; Newly recognized heart murmur; Cardiovascular event risk; Right bundle branch block 06/18/2024 Bamboo flowsheet [facility] [address] [place] [address] Nitesh Ware MD 06/18/2024 Travel 06/16/2024 9:30 AM EDT Treatment [facility] [address] [place] [address] Kitty, Abbie, SIGNAL APPRENTICE Gait abnormality (Primary Dx); Weakness 06/16/2024 Bamboo flowsheet [facility] [address] [place] [address] Kitty, Abbie, SIGNAL APPRENTICE 06/16/2024 Travel 06/15/2024 Refill [facility] [address] [place] [address] Nitesh Ware MD Benign essential hypertension 06/13/2024 9:00 AM EDT Treatment [facility] [address] [place] [address] Abbie Tang, SIGNAL APPRENTICE Gait abnormality (Primary Dx) 06/13/2024 Bamboo flowsheet [facility] [address] [place] [address] Abbie Tang, SIGNAL APPRENTICE 06/13/2024 Travel 06/11/2024 9:00 AM EDT Evaluation [facility] [address] [place] [address] Clif Gonzalez, PT Gait abnormality (Primary Dx); Weakness 06/11/2024 Plan of Care Documentation [facility] [address] [place] [address] 06/11/2024 Bamboo flowsheet [facility] [address] [place] [address] Clif Gonzalez, MARCOS 06/11/2024 Travel 06/02/2024 9:00 AM EDT Office Visit [facility] [address] [facility] [address] [place] [address] Nitesh Ware MD Encounter for Medicare annual wellness exam (Primary Dx); Advance directive in chart; Encounter for screening for other disorder; Screening for alcohol problem; Benign essential hypertension ; Hypertensive nephropathy ; Chronic kidney disease, stage 3a (CMS-HCC); Type 2 diabetes mellitus with stage 3a chronic kidney disease, without long-term current use of insulin (HCC); Diabetic polyneuropathy associated with type 2 diabetes mellitus (HCC); Peripheral vascular disease; Mixed dyslipidemia ; Cardiovascular event risk 06/02/2024 Bamboo flowsheet [facility] [address] [facility] [address] [place] [address] Nitesh Ware MD 06/02/2024 Travel 05/29/2024 Telephone [facility] [address] [place] [address] Rodrigo Baugh MD 05/25/2024 Refill [facility] [address] [place] [address] Nitesh Ware MD Benign essential hypertension from Last 3 Months Immunizations Immunization Administration Dates Next Due DTP 10/26/2021 Influenza Whole 12/04/2006 Influenza, High Dose Seasona l, Preservative Free 11/15/2023,11/12/2018,11/27/2017,11/14,11/23/2015,11/26/2014 Influenza, High-dose Seasona l, Quadrivalent, Preservative Free 11/17/2020 Influenza, Seasonal, Quadriv alent, Adjuvanted 11/23/2022,11/21/2019 Influenza, injectable, quadr ivalent, preservative free 11/24/2019 Influenza, seasonal, intrade rmal, preservative free 12/10/2012 Pneumococcal Conjugate PCV 13 11/14/2016 Pneumococcal Polysaccharide PPSV23 11/17/2020 Td (adult), 5 Lf tetanus tox oid, preservative free, adsorbed 07/27/2010 Tdap 07/27/2010 Zoster, Recombinant 02/12/2020,11/21/2019 Zoster, live 01/13/2014 Family History Medical History Relation Name Comments Diabetes Mother Heart disease Mother Relation Name Status Comments Brother Alive 1 brother Father Mother Other spouse Social History Tobacco Use Types Packs/Day Years Used Date Smoking Tobacco: Never Smokeless Tobacco: Never Tobacco Cessation:Counseling Given: Yes Alcohol Use Standard Drinks/Week Comments Not Currently [...] How often do you attend chur or zoroastrian services? More than 4 times per year 07/11/2022 Do you belong to any clubs o r organizations such as sikh groups, unions, fraternal or athletic groups, or [...] Recorded Patient Health Questionnaire-2 Score 0 06/18/2024 [facility] - Occupational Stress Questionnaire Answer Date Recorded [...] place to sleep or slept in a retirement (including now)? No 07/11/2022 Education Answer Date Recorded What is the highest level of school you have completed or the highest degree you have received? High school graduate 07/05/2022 Comments No Sex and Gender Information Value Date Recorded Sex Assigned at Not on file Legal Sex Female 6:34 PM EDT Gender Identity Not on file Sexual Orientation Not on file Last Filed Vital Signs Vital Sign Reading Time Taken Comments Blood Pressure 124/70 07/02/2024 1:35 PM EDT Pulse 58 06/18/2024 9:18 AM EDT Temperature 36.3 C (97.3 F) 04/12/2024 10:45 AM EST Respiratory Rate 18 07/17/2024 9:10 AM EDT Oxygen Saturation 98% 06/18/2024 9:18 AM EDT Inhaled Oxygen Concentration - - Weight 83 kg (183 lb) 08/07/2024 1:53 PM EDT Height 154.9 cm (5' 1 ) 08/07/2024 1:53 PM EDT Body Mass Index 34.58 08/07/2024 1:53 PM EDT Plan of Treatment Upcoming Encounters Date Type Department Care Team (Late st Contact Info) Description 09/25/2024 9:00 AM EDT Office Visit [facility] [address] [facility] [address] [place] [address] Flip Alvarado DPM [address] [facility] [address] [place] [address] 10/02/2024 11:00 AM EDT Office Visit [facility] [address] [facility] [address] [place] [address] Rodrigo Baugh MD [address] [place] [id number] 12/10/2024 9:00 AM EST Office Visit [facility] [address] [facility] [address] [place] [address] Nitesh Ware MD [address] [facility] [address] [place], [place] [id number] Health Maintenance Due Date Last Done Comments Diabetes: Urine Protein Screening 02/11/2021 021, 12/05/2017 Influenza Vaccine (#1) 2024 , 11/23/2022, 11/17/2020, Additional history exists Diabetes: Hemoglobin A1C 12/12/2024 025, 12/12/2023, 06/22/2023, Additional history exists Medicare Annual Wellness (AWV) 06/02/2025 0 06/02/2024, 05/30/2023, 12/25/2022 Diabetes: Retinopathy Screening 09/16/2025 09/17/2023, 09/08/2021, 09/01/2019, Additional history exists Pneumococcal Vaccine: 65+ Years Completed , 11/14/2016 Procedures Procedure Name Priority Date/Time Associated Diagnosis Comments HEMOGLOBIN A1C Routine 06/11/2024 8:11 AM EDT Diabetic nephropathy associated with type 2 diabetes mellitus (HCC) DIABETIC RETINOPATHY SCREENING - OU - BOTH EYES Routine 09/17/2023 9:15 AM EDT MICROALBUMIN, URINE QUANT Routine 02/12/2020 12:00 PM EST from Last 3 Months or Most Recently Relevant to Health Maintenance Results * (ABNORMAL) Hemoglobin A1c (06/11/2024 8:11 AM EDT) Hemoglobin A1C 6.9(H) <5.7 % [facility] Comment: For someone without known diabetes, a hemoglobin A1c value of 6.5% or greater indicates that they may have diabetes and this should be confirmed with a follow-up test. For someone with known diabetes, a value <7% indicates that their diabetes is well controlled and a value greater than or equal to 7% indicates suboptimal control. A1c targets should be individualized based on duration of diabetes, age, comorbid conditions, and other considerations. Currently, no consensus exists regarding use of hemoglobin A1c for diagnosis of diabetes for children. Blood Venous blood specimen / Unknown 06/11/2024 8:11 AM EDT 06/11/2024 3:33 PM EDT Narrative [facility] - 06/12/2024 12:48 AM EDT FASTING:NO FASTING: NO Resulting Agency Comment Performing Organization Information Site ID: [id number] Name: [facility] Address: [address] [place] [address], [address] [place] [id number] Director: Michael Bishop MD Nitesh Ware MD LAB BLOOD ORDERABLES Final R esult Performing Organization Address [facility]/ZIP Co de Phone Number [facility] * Diabetic Retinopathy Screening - OU - Both Eyes (09/17/2023 9:15 AM EDT) Anatomical Region Laterality Modality Head Other Edi Puenteer OD OPHTH PHOTOGRAPHY Final Result * MICROALBUMIN, URINE QUANT (02/12/2020 12:00 PM EST) GENERIC LEGACY COMPONENT INTERNAL 1-1,500 [facility] GENERIC LEGACY COMPONENT INTERNAL 10 [facility] 02/12/2020 12:0 0 PM EST Nitesh Ware MD [facility] Final Result Performing Organization Address [facility]/ZIP Co de Phone Number [facility] from Last 3 Months or Most Recently Relevant to Health Maintenance Insurance [employer] MEDICARE Advance Directives Documents on File Type Date Recorded Patient Novelty Dipper Expl anation Advance Directives and Living Will 05/31/2018 2018-03-08 Power Of Proj Engineer Advance Directives and Living Will 05/31/2018 2018-03-08 Living Wi ll Advance Directives and Living Will 05/31/2018 2018-03-08 Donor Registry Advance Directives and Living Will 05/31/2018 2018-03-08 Power Of Proj Engineer Care Teams Hospice Executive Director Relationship Specialty Start Date End Date Nitesh Ware MD [address] [place] [address] PCP - General Family Medicine 05/01/24 Rodrigo Baugh MD [address] [place] [address] Referring Physician Neurology 06/02/24 Flip Alvarado DPM [address] [place] [address] Referring Physician Podiatry 06/02/24
--- OUTSIDE RECORDS SUMMARY | 2024-08-22 07:54 | XMS_ITS | Encounter Summary ---
Author Organization [facility] Address [address] [place] [address] Care Team Providers Care Supervisor Screen Printing Name Role Phone Nitesh Ware MD Unavailable [phone] Marleen Lovett LPN Unavailable Nitesh Ware MD Primary Care Provider [phone] Rodrigo Baugh MD Unavailable [phone] Flip Alvarado DPHannah Unavailable [phone] Encounter Details Date Type Department Care Team (Late st Contact Info) Description 09/25/2022 Abstract [facility] [address] [place] [address] Nitesh Ware MD 112 [facility] 100 [place] [address] Social History Tobacco Use Types [...] week 07/11/2022 How often do you attend [facility] or yarsani services? More than 4 times per year 07/11/2022 Do you belong to any clubs o r organizations such as evangelical groups, unions, fraternal or athletic groups, or [...] and heating? Not hard at all 07/11/2022 [facility] - [...] place to sleep or slept in a assisted (including now)? No 07/11/2022 Education Answer Date [...] Office Visit [facility] 112 [facility] 120 [place] [address] Flip Alvarado DPM 3006 [facility] 5 [place] [address] 10/02/2024 11:00 AM EDT Office Visit [facility] [address] [facility] [address] [place] [address] Rodrigo Baugh MD 0088 [facility] [address], [place] [address] 12/10/2024 9:00 AM EST Office Visit [facility] [address] [facility] 100 [place] [address] Nitesh Ware MD [address] [place] [address] documented as of this encounter Visit Diagnoses Not on filedocumented in this encounter Care Teams Supervisor Screen Printing Relationship Specialty Start Date End Date Nitesh Ware MD [address] [place] [address] (Fax) PCP - [employer] 02/05/17 04/11/24 Nitesh Ware MD [address] [place] [address] PCP - General Family Medicine 05/01/24 Marleen Lovett LPN [address] [facility] [address] [place] [address] Licensed Practical Nurse Family Medicine 03/08/23 Rodrigo Baugh MD [address] [place] [address] Referring Physician Neurology 06/02/24 Flip Alvarado DPM [address] [place] [address] Referring Physician Podiatry 06/02/24 documented as of this encounter
--- OUTSIDE RECORDS SUMMARY | 2024-08-22 07:54 | XMS_ITS | Encounter Summary ---
Author Organization [facility] Address [address] [place] [address] Care Team Providers Care Development And Housing Director Name Role Phone Nitesh Ware MD Primary Care Provider Rodrigo Baugh MD Unavailable Flip Alvarado DPM Unavailable [phone] Reason for Visit * Reason Comments Med Refill Encounter Details Date Type Department Care Team (Late Contact Info) Description 07/29/2024 Telephone [facility] 100 [address] [facility] [address] [place] [address] Nitesh Ware MD 112 [facility] [address] [place] [address] Med Refill Social History Tobacco Use Types Packs/Day Years [...] How often do you attend chur or rastafari services? More than 4 times per year 07/11/2022 Do you belong to any clubs o r organizations such as gnosticism groups, unions, fraternal or athletic groups, or [...] Recorded Patient Health Questionnaire-2 Score 0 06/18/2024 [facility] Occupat ional [facility] - Occupational Stress Questionnaire Answer Date [...] place to sleep or slept in a skilled nursing (including now)? No 07/11/2022 Education Answer Date [...] on file documented as of this encounter Miscellaneous Notes * Telephone Encounter - Lola Romero MA - 07/31/2024 9:03 AM EDT Vm left for pt to return our call to make OV to discuss meds. EH for that OV, I did look back in her chart though and she had switched from regular Metformin to the XR and still having loose bowels noted at OV 07/05/23 and phone note 10/22/23 and you switched herto actos. * Telephone Encounter - Nitesh Ware MD - 07/31/2024 8:08 AM EDT I have taken a quick look at the medical record. I do not see where metformin is listed as an allergy /side effect, but knowing how I practice medicine I would suspect we have tried her on this before if you can check that out with her. If we have never tried that, then that would be the next step is to add that. Having said that assuming we need to pick new diabetic medications, after looking at her chart I think she should come in so we can have a conversation about exactly what to do for her. There Are several different options on the table with side effect risks and medical risks associated with everything that is going on with her body. * Telephone Encounter - Lola Romero MA - 07/29/2024 10:00 AM EDT Pt called and stated that EH told her since she was having issues with constipation to hold her Farxiga and update him. She has been going more normally so she wants to know what the next step is. documented in this encounter Plan of Treatment Upcoming Encounters Date Type Department Care Team (Late st Contact Info) Description 09/25/2024 9:00 AM EDT Office Visit [facility] 112 [facility] 120 [place] [address] Flip Alvarado, DPM 3006 [facility] 5 [place] [address] 10/02/2024 11:00 AM EDT Office Visit [facility] [address] [facility] 310 [place] [address] Rodrigo Baugh MD 2070 [facility] [address] [address] 12/10/2024 9:00 AM EST Office Visit [facility] 100 112 [facility] 100 [place] [address] Nitesh Ware MD 112 [facility] 100 [place] [address] (Fax) documented as of this encounter Visit Diagnoses Diagnosis Mixed dyslipidemia Diabetic nephropathy associated with type 2 diabetes mellitus (HCC) documented in this encounter Additional Health Concerns Assessment Noted Time PHQ-9 Depression Total Score: 1 06/03/19 25 8:00 AM EDT documented as of this encounter Care Teams Development And Housing Director Relationship Specialty Start Date End Date Nietsh Ware MD 112 [facility] [address] [place] [address] PCP - General Family Medicine 05/01/24 Rodrigo Baugh MD [address] [place] [address] Referring Physician Neurology 06/02/24 Flip Alvarado DPM 112 [facility] [address] [place] [address] Referring Physician Podiatry 06/02/24 documented as of this encounter
--- OUTSIDE RECORDS SUMMARY | 2024-08-22 07:54 | XMS_ITS | Clinical Summary ---
Author Organization [facility] Address [address] [place], [place] [id number] Care Team Providers Care Statistical Methods Teacher Name Role Phone Nitesh Ware MD Primary Care Provider Allergies Active Allergy Reactions Criticality Noted Date Comments Fexofenadine Unknown 01/23/2013 Medications aspirin, enteric coated (ADULT LOW DOSE ASPIRIN) 81 mg EC tablet Take 1 tablet by mouth once daily. 0 01/23/2013 Active lisinopril 20 mg tablet Take 1 tablet by mouth once daily. 0 01/23/2013 Active Cholecalciferol , Vitamin D3, (VITAMIN D) 1,000 unit cap Take 1 capsule by mouth once daily. 0 01/23/2013 Active Multivitamins-M inerals-Lutein (CENTRUM SILVER) tab Take 1 tablet by mouth once daily. 0 01/23/2013 Active ACCU-CHEK SMARTVIEW TEST STRIP test strip 01/27/2014 Active metFORMIN (GLUCOPHAGE) 1,000 mg tablet Take 1,000 mg by mouth twice daily with meals. Active anastrozole (ARIMIDEX) 1 mg tablet Take 1 tablet by mouth once daily. 90 tablet 3 08/27/2017 Active amLODIPine (NORVASC) 10 mg tablet Take 10 mg by mouth once daily. 2 08/19/2018 Active losartan (COZAAR) 100 mg tablet Take 100 mg by mouth once daily. 2 08/19/2018 Active POTASSIUM-99 ORAL Take 595 mg by mouth. Active Magnesium 200 mg tab Take by mouth. Active Active Problems Problem Noted Date Diagnosed Date Pain of right upper extremity 08/28/2016 Malignant neoplasm of female breast 08/30/2015 Breast cancer 01/27/2013 Social History Tobacco Use Types Packs/Day Years Used Date Smoking Tobacco: Never Smokeless Tobacco: Never Alcohol Use Standard Drinks/Week Comments No 0 (1 standard drink = 0.6 oz pur e alcohol) PHQ-2 Answer Date Recorded PHQ-2 Score 0 12/29/2018 Comments No Sex and Gender Information Value Date Recorded Sex Assigned at Not on file Legal Sex Female 3:55 PM EST Gender Identity Not on file Sexual Orientation Not on file Last Filed Vital Signs Vital Sign Reading Time Taken Comments Blood Pressure 156/77 08/26/2018 11:02 AM EDT Pulse 88 08/26/2018 11:02 AM EDT Temperature 36.7 C (98.1 F) 08/26/2018 11:02 AM EDT Respiratory Rate 20 08/26/2018 11:02 AM EDT Oxygen Saturation 97% 08/26/2018 11:02 AM EDT Inhaled Oxygen Concentration - - Weight 75.6 kg (166 lb 9.6 oz) 08/26/2018 11:02 AM EDT Height 154.3 cm (5' 0.75 ) 08/26/2018 11:02 AM E DT Body Mass Index 31.74 08/26/2018 11:02 AM EDT Plan of Treatment Health Maintenance Due Date Last Done Comments Anxiety Screening 12/09/1963 Depression Screening 12/09/1963 Hepatitis C Screening 12/09/1963 DTaP,Tdap,Td Vaccine (1 - Tdap) 1964 Diabetes Screening 1990 Pneumococcal Vaccine: 50+ (1 of 1 - PCV) 12/09/1995 Shingrix Vaccine (1 of 2) 12/09/1995 Bone Density Screening 2010 RSV Vaccine (1 - 1-dose 75+ series) 2020 Covid-19 Vaccine (1 - 2023- season) 2023 Advance Directive Discussion 02/06/2024 Influenza Vaccine (#1) [address] [place] [address] MEDICARE Care Teams Statistical Methods Teacher Relationship Specialty Start Date End Date Nitesh Ware MD [address] [place] [address] PCP - General Family Medicine 01/22/13
--- OUTSIDE RECORDS SUMMARY | 2024-08-22 07:54 | XMS_ITS | Encounter Summary ---
Author Organization [facility] Address [address] [place] [address] Care Team Providers Care Nuclear Fuels Research Engineer Name Role Phone Nitesh Ware MD Primary Care Provider Rodrigo Baugh MD Unavailable [phone] Flip Alvarado DPM Unavailable Encounter Details Date Type Department Care Team (Late st Contact Info) Description 08/21/2024 Bamboo flowsheet [facility] [address] [facility] [address] [place] [address] Clif Gonzalez, PT [address] [facility] [address] [place] [address] Social History Tobacco Use Types Packs/Day Years [...] often do you attend chur ch or adventist services? More than 4 times per year 07/11/2022 Do you belong to any clubs o r organizations such as yazidi groups, unions, fraternal or athletic groups, or [...] Recorded Patient Health Questionnaire-2 Score 0 06/18/2024 [facility] - Occupational Stress Questionnaire Answer Date [...] place to sleep or slept in a snf (including now)? No 07/11/2022 Education Answer Date [...] Visit [facility] [address] [facility] 120 [place] [address] Flip Alvarado DPHannah 3006 [facility] 5 [place] [address] 10/02/2024 11:00 AM EDT Office Visit [facility] NE[facility] [address] [facility] 310 [place] [address] Rodrigo Baugh MD 6568 [facility] [address], [place] [address] 12/10/2024 9:00 AM EST Office Visit [facility] [address] [facility] 100 [place] [address] Nitesh Ware MD [address] [place] [address] documented as of this encounter Visit Diagnoses Not on filedocumented in this encounter Additional Health Concerns Assessment Noted Time PHQ-9 Depression Total Score: 1 06/03/19 25 8:00 AM EDT documented as of this encounter Care Teams Nuclear Fuels Research Engineer Relationship Specialty Start Date End Date Nitesh Ware MD 112 [facility] 100 [place] [address] PCP - General Family Medicine 05/01/24 Rodrigo Baugh MD [address] [facility] [address] [place] [address] Referring Physician Neurology 06/02/24 Flip Alvarado DPM 112 [facility] [address] [place] [address] Referring Physician Podiatry 06/02/24 documented as of this encounter
--- OUTSIDE RECORDS SUMMARY | 2024-08-22 07:54 | XMS_ITS | Encounter Summary ---
Author Organization [facility] Address [address] [place] [address] Care Team Providers Care Title Lawyer Name Role Phone Nitesh Ware MD Unavailable [phone] Nitesh Ware MD Primary Care Provider [phone] oRdrigo Baugh MD Unavailable [phone] Flip Alvarado DPM Unavailable [phone] Encounter Details Date Type Department Care Team (Late st Contact Info) Description 01/07/2024 Orders Only [facility] [address] [place] [address] Nitesh Ware MD [address] [place] [address] Social History Tobacco Use Types Packs/Day Years [...] How often do you attend chur or orthodoxy services? More than 4 times per year 07/11/2022 Do you belong to any clubs o r organizations such as mandaeism groups, unions, fraternal or athletic groups, or [...] Recorded Patient Health Questionnaire-2 Score 0 05/30/2023 [facility] Questionnaire Answer [...] place to sleep or slept in a fpc (including now)? No 07/11/2022 Education Answer Date [...] EDT Office Visit [facility] 112 [facility] 120 [place] [address] Flip Alvarado DPM 3006 [facility] 5 [place] [address] 10/02/2024 11:00 AM EDT Office Visit [facility] [address] [facility] 310 [place] [address] Rodrigo Baugh MD [address] [facility] [address] [id number] 12/10/2024 9:00 AM EST Office Visit [facility] 100 112 [facility] 100 [place] [address] Nitesh Ware MD 112 [facility] 100 [place] [address] documented as of this encounter Visit Diagnoses Not on filedocumented in this encounter Additional Health Concerns Assessment Noted Time PHQ-9 Depression Total Score: 1 05/30/19 24 10:00 AM EDT documented as of this encounter Care Teams Title Lawyer Relationship Specialty Start Date End Date Nitesh Ware MD 112 [place] [facility] 100 [place] [address] PCP - [employer] 02/05/17 04/11/24 Nitesh Ware MD [address] [address] PCP - General Family Medicine 05/01/24 Rodrigo Baugh MD [address] [facility] [address] [place] [address] Referring Physician Neurology 06/02/24 Flip Alvarado DPM 112 [facility] 120 [place] [address] Referring Physician Podiatry 06/02/24 documented as of this encounter
--- NOTE | 2024-08-22 07:56 | CA_ITS ---
Patient Name: ELI FISH MR#: [id number] : 1945 Exam Date: 08/22/2024 Ordering Doctor: DR LEANNA RM . ECHOCARDIOGRAM REPORT PROCEDURE: CA ECHO DOPPLER COMPLETE INDICATIONS: HTN, Murmur, RBBB COMPARISON: None. DESCRIPTION: COMPLETE ECHOCARDIOGRAM Real-time transthoracic echocardiography with 2D, M-mode, spectral and color flow Doppler performed. QUALITY: Technical quality was good. LEFT VENTRICLE: Normal chamber size. Mildly thickened septal wall at the proximal portion. Global left ventricular systolic function is normal without wall motion abnormalities. Calculated left ventricular ejection fraction is 67%. LV EF: 67% DIASTOLIC: Normal diastolic function. ATRIAL SEPTUM: Appears intact LEFT ATRIUM: Mild dilatation. RIGHT ATRIUM: Normal chamber size. RIGHT VENTRICLE: Normal chamber size. Normal right ventricular systolic function. TRICUSPID VALVE: Normal mobility and thickness. No stenosis with trivial regurgitation. No evidence of pulmonary hypertension.RVSP 27mmHg. MITRAL VALVE: Normal mobility and thickness. No evidence of mitral valve stenosis. There is no mitral annular calcification. Trivial mitral regurgitation. AORTIC VALVE: Normal trileaflet appearance. No visible sclerosis. Normal leaflet mobility. No evidence of aortic valve stenosis. No aortic regurgitation. AORTIC ROOT: Normal diameter and appearance. PULMONIC VALVE: Normal thickness and mobility. No stenosis. No regurgitation. PERICARDIUM: No evidence of pericardial effusion. IVC: Collapes with inspirations. Normal size. PLEURA: CONCLUSION: Mildly thickened septum at its proximal portion Normal left ventricle systolic function without wall motion abnormalities, ejection fraction 67% Normal left ventricle diastolic function Normal right ventricular size and systolic function Normal right sided pressures No significant valvular abnormalities Mildly dilated left atrium Adult Echocardiography Procedure Report Left Ventricle LVEDD (3.7 - 5.6 cm): 4.51 cm LVESD (2.2 - 4.0 cm): 2.78 cm LVIVS thickness (0.6 - 1.2 cm): 1.16 cm LVPW thickness (0.5 - 1.0 cm): 0.80 cm e': 0.10 m/s E - e': 9.99 LVOT Max Gradient: 4.55 mm[Hg] LVOT Area (cm2): 1.07 m/s Peak Velocity (LVOT): 1.07 m/s Mean Velocity (LVOT): 0.75 m/s LVOT Diameter 1.82 cm Left Ventricular Ejection Fraction: 67.19 % Left Atrium LA Volume Index (2D A2C): 43.37 ml/m2 Left Atrium Systolic Dimension: 3.47 cm Mitral Valve MV E to A Ratio: 1.41 MV Max Gradient: MV Mean Gradient: Mitral Valve A-Wave Peak Velocity: 0.68 m/s Mitral Valve E-Wave Peak Velocity: 0.95 m/s Cardiovascular Orifice Area: Right Ventricle RV Internal Diastolic Dimension: 3.95 cm Aorta AO Root Diam: 2.80 cm Ascending Ao Diam: 3.00 cm Aortic Valve AoV Area (Peak Balbir): 1.85 cm2, 1.85 cm2 AoV Area (VTI): 1.84 cm2, 1.84 cm2 Deceleration [place]: Pressure Half-Time: Peak Velocity(Antegrade Flow): 1.50 m/s Peak Gradient(Antegrade Flow): 8.97 mm[Hg] Mean Velocity(Antegrade Flow): 1.02 m/s Mean Gradient(Antegrade Flow): 4.80 mm[Hg] Velocity Time Integral: 38.38 cm Tricuspid Valve Peak Velocity (Regurgitant Flow): 2.45 m/s, 2.53 m/s, 2.43 m/s, 2.34 m/s Peak Velocity: Pulmonic Valve Mean Gradient: Mean Velocity: Peak Velocity: 0.88 m/s Peak Gradient: 3.14 mm[Hg], 3.01 mm[Hg] Right Atrium Right Atrium Systolic Pressure: 56.64 ml, 56.64 ml Dictated by: Yuri Carvajal MD on 08/23/2024 at 18:24 Approved by: Yuri Carvajal MD on 08/23/2024 at 18:30
== END 2024-08-22 07:47 | disposition home or self-care (01) ==
LOC: CARD 07:50
PROVIDERS: PCP Family Medicine; Visit Provider Family Medicine
DX: R01.1 Cardiac murmur, unspecified (principal); I10 Essential (primary) hypertension; Z91.89 Other specified personal risk factors, not elsewhere classified; I45.10 Unspecified right bundle-branch block
CPT/HCPCS: 93306